=== PATIENT | female | born 1965 | race Caucasian/White ===

== ENCOUNTER 2018-01-26 09:05 | Outpatient (CLI) | payer MEDICAID ==
[2018-01-26 12:48] LABS: BASOPHILS % (AUTO) 0.3 %; EOSINOPHILS # (AUTO) 0.1 10^3/uL (0.0-0.7); EOSINOPHILS % (AUTO) 1.1 %; HGB - HEMOGLOBIN 12.6 g/dL (12.0-16.0); LYMPHOCYTES # (AUTO) 3.7 10^3/uL (1.5-3.5); LYMPHOCYTES % (AUTO) 58.6 %; MEAN CORPUSCULAR HEMOGLOBIN 28.9 pg (27.0-31.0); MEAN CORPUSCULAR HGB CONC 33.2 g/dL (32.0-36.0); MEAN CORPUSCULAR VOLUME 87.1 fL (81.0-99.0); MEAN PLATELET VOLUME 8.3 fL (7.9-10.8); MONOCYTES # (AUTO) 0.5 10^3/uL (0.0-1.0); MONOCYTES % (AUTO) 7.6 %; NEUTROPHILS % (AUTO) 32.4 %; PLT - PLATELET COUNT 302 10^3/uL (130-450); RED BLOOD COUNT 4.36 10^6/uL (4.20-5.40); RED CELL DISTRIBUTION WIDTH 12.9 % (12.0-15.0); WHITE BLOOD COUNT 6.3 x10^3/uL (4.8-10.8)
[2018-01-26 13:17] LABS: ALBUMIN 3.9 g/dL (3.2-5.5); ALBUMIN/GLOBULIN RATIO 1.3 (1.0-2.2); ALKALINE PHOSPHATASE 68 IU/L (42-121); ALT ALANINE AMINOTRANSFERASE 26 IU/L (10-60); AST ASPARTATE AMINOTRANSFERASE 29 IU/L (10-42); BILIRUBIN,TOTAL 0.3 mg/dL (0.2-1.0); BUN - BLOOD UREA NITROGEN 24 mg/dL (6-20); CALCIUM 9.1 mg/dL (8.5-10.3); CARBON DIOXIDE - CO2 24 mmol/L (21-32); CHLORIDE 109 mmol/L (101-111); CHOL/HDL RATIO 2.4 (<4.4); CHOLESTEROL 195 mg/dL; CREATININE 0.6 mg/dL (0.4-1.0); GFR - MDRD 105 (>89); GLUCOSE 102 mg/dL (70-100); HDL CHOLESTEROL 80 mg/dL; SODIUM 141 mmol/L (135-145)
[2018-01-26 13:21] LABS: THYROID STIMULATING HORMONE 1.74 uIU/mL (0.34-5.60)
[2018-01-26 13:32] LABS: FOLATE 15.25 ng/mL (5.90 - >24.8)
[2018-01-26 14:20] LABS: LDL CHOLESTEROL,DIRECT 103 mg/dL; LDLD/HDL RATIO 1.3 (<4.4)
== END 2018-01-26 09:06 | disposition home or self-care (01) ==
LOC: LAB.N 09:05
PROVIDERS: ATTEND Nurse Practitioner
DX: I10 Essential (primary) hypertension (principal); E55.9 Vitamin D deficiency, unspecified; R53.83 Other fatigue
CPT/HCPCS: 36415; 80053; 80061; 82306; 82607; 82746; 83721; 84443; 85025

== ENCOUNTER 2018-05-16 14:21 | Outpatient (CLI) | payer MEDICAID ==
--- NOTE | 2018-05-16 16:59 | XRAY Report ---
Reason: COUGH/NICOTINE ABUSE/DEPENDENCE Procedure Date: 05/16/2018 Accession Number: [id number] / [id number] Procedure: WCP - Chest 2 View X-Ray CPT Code: 33383 FULL RESULT: EXAM: CHEST RADIOGRAPHY EXAM DATE: 05/16/2018 02:34 PM. CLINICAL HISTORY: COUGH/NICOTINE ABUSE/DEPENDENCE. COMPARISON: None. TECHNIQUE: 2 views. FINDINGS: Lungs/Pleura: No focal opacities evident. No pleural effusion. No pneumothorax. Normal volumes. Mediastinum: Heart and mediastinal contours are unremarkable. Densely calcified mediastinal lymph nodes are present. Other: Negative bony structures. IMPRESSION: Clear lungs. No acute findings. Densely calcified mediastinal lymph nodes are present. RADIA
== END 2018-05-16 14:22 | disposition home or self-care (01) ==
LOC: DI.WCP 14:21
PROVIDERS: ATTEND Family Medicine
DX: R05 Cough (principal); F17.200 Nicotine dependence, unspecified, uncomplicated; I89.8 Other specified noninfective disorders of lymphatic vessels and lymph nodes; R91.8 Other nonspecific abnormal finding of lung field
CPT/HCPCS: 36415; 71046; 80053; 82164; 85025

== ENCOUNTER 2018-05-16 14:50 | Outpatient (CLI) | payer MEDICAID ==
[2018-05-16 19:10] LABS: BASOPHILS % (AUTO) 0.2 %; EOSINOPHILS % (AUTO) 0.7 %; LYMPHOCYTES # (AUTO) 2.4 10^3/uL (1.5-3.5); MEAN CORPUSCULAR HEMOGLOBIN 28.5 pg (27.0-31.0); MEAN CORPUSCULAR HGB CONC 32.2 g/dL (32.0-36.0); MEAN CORPUSCULAR VOLUME 88.3 fL (81.0-99.0); MEAN PLATELET VOLUME 7.5 fL (7.9-10.8); MONOCYTES # (AUTO) 0.5 10^3/uL (0.0-1.0); MONOCYTES % (AUTO) 8.9 %; NEUTROPHILS # (AUTO) 2.8 10^3/uL (1.5-6.6); NEUTROPHILS % (AUTO) 48.2 %; PLT - PLATELET COUNT 422 10^3/uL (130-450); RED BLOOD COUNT 4.23 10^6/uL (4.20-5.40); RED CELL DISTRIBUTION WIDTH 13.5 % (12.0-15.0); WHITE BLOOD COUNT 5.7 x10^3/uL (4.8-10.8)
[2018-05-16 19:21] LABS: ALBUMIN 3.7 g/dL (3.2-5.5); ALBUMIN/GLOBULIN RATIO 1.1 (1.0-2.2); BILIRUBIN,TOTAL 0.4 mg/dL (0.2-1.0); CALCIUM 9.2 mg/dL (8.5-10.3); CREATININE 0.6 mg/dL (0.4-1.0); TOTAL PROTEIN 7.1 g/dL (6.7-8.2)
== END 2018-05-16 14:51 | disposition home or self-care (01) ==
LOC: LAB.WCP 14:50
PROVIDERS: ATTEND Family Medicine
DX: R91.8 Other nonspecific abnormal finding of lung field (principal)
CPT/HCPCS: 36415; 80053; 82164; 85025

== ENCOUNTER 2018-05-23 08:20 | Outpatient (CLI) | payer MEDICAID ==
--- NOTE | 2018-05-31 09:40 | Mammography Report ---
Reason: SCREENING MAMMO Procedure Date: 05/23/2018 Accession Number: [id number] / [id number] Procedure: MGN - Screening Mammo Dig Bilat CPT Code: FULL RESULT: EXAM: Screening Mammo Dig Bilat DATE: 05/23/2018 8:43 AM CLINICAL HISTORY: Screening encounter. TECHNIQUE: Bilateral CC and MLO views were obtained. COMPARISON: Limited comparison is made to mammographic study dated June 21, 2016 from an outside institution. FINDINGS: The breasts demonstrate scattered fibroglandular densities bilaterally. The left MLO view is nondiagnostic for technical reasons and needs to be repeated. No suspicious masses, clustered microcalcifications, or regions of architectural distortion are identified. IMPRESSION: Incomplete examination RECOMMENDATION: Additional evaluation as above. Left MLO view. BIRADS CATEGORY 0: Incomplete examination STANDARD QUALIFYING STATEMENTS: 1. This examination was reviewed with the aid of Computer-Aided Detection (CAD). 2. A negative or benign imaging report should not delay biopsy if clinically suspicious findings are present. Consider surgical consultation if warrented. More than 5% of cancers are not identified by imaging. 3. Dense breasts may obscure an underlying neoplasm.
== END 2018-05-23 08:21 | disposition home or self-care (01) ==
LOC: DI.N 08:20
PROVIDERS: ATTEND Physician Assistant Medical
DX: Z12.31 Encounter for screening mammogram for malignant neoplasm of breast (principal)
CPT/HCPCS: 77067

== ENCOUNTER 2018-05-26 08:42 | Outpatient (CLI) | payer MEDICAID ==
[2018-05-26] MEDS ORDERED: IOVERSOL 320 100 ML VIAL IVP ONE ×3 (08:43→09:31)
--- NOTE | 2018-05-26 10:12 | CT Report ---
Reason: LUNG MASS,NICOTINE ABUSE/DEPENDENCE Procedure Date: 05/26/2018 Accession Number: [id number] / [id number] Procedure: CT - CHEST W CPT Code: FULL RESULT: EXAM: CT CHEST EXAM DATE: 05/26/2018 09:18 AM. CLINICAL HISTORY: Lung mass, nicotine abuse/dependence. COMPARISONS: Chest 2 views 05/16/2018 2:18 PM. TECHNIQUE: Routine helical CT imaging was performed through the chest. IV contrast: None. Reconstructions: Coronal and sagittal. In accordance with CT protocol optimization, one or more of the following dose reduction techniques were utilized for this exam: automated exposure control, adjustment of mA and/or KV based on patient size, or use of iterative reconstructive technique. FINDINGS: Lungs/Pleura: There is a 3 mm nodule in the anterior right middle lobe, image 32 of series 4. There is a 3 mm calcified granuloma in the right middle lobe, image 33. There is a 2 mm perifissural nodule in the right middle lobe, image 35. 3 mm nodule in the right lower lobe, image 3. 2 mm nodule in the left lower lobe on image 38. Mild emphysematous background is noted. No pleural effusion or pneumothorax. Mediastinum: Densely calcified pretracheal and subcarinal lymph nodes as well as a calcified right hilar lymph node, prior granulomatous disease. Mild aortic arch calcifications. Bones: Mild anterior wedge compression fracture deformity of T10, less than 25% height. Visualized Abdomen: Spleen shows evidence of prior granulomatous disease. Other: Prominent lymph nodes in the right axilla, measuring up to 0.9 cm in short axis, do not meet size criteria. IMPRESSION: A few generally benign-appearing scattered pulmonary nodules, some of which are calcified, measuring up to 3 mm as described. Evidence of granulomatous disease in the mediastinum, right hilum and spleen. No evidence of active airspace disease/lung mass. Age-indeterminate mild compression fracture of T10. Recommend follow-up of the described nodule(s) according to the following guidelines: Fleischner Society Recommendations 2017 Mac Cornelia et al. Radiology 2017 Solid Nodules-Low Risk Patients: <6 mm (single or multiple) - No routine follow-up* Solid Nodules-High Risk Patients: <6 mm (single or multiple) -Optional CT at 12 months* *Nodules < 6mm do not require routine follow-up, but suspicious nodule morphology, upper lobe location, or both may warrant 12 month follow-up RADIA
== END 2018-05-26 08:43 | disposition home or self-care (01) ==
LOC: DI 08:42
PROVIDERS: ATTEND Family Medicine
DX: R91.8 Other nonspecific abnormal finding of lung field (principal); F17.200 Nicotine dependence, unspecified, uncomplicated
CPT/HCPCS: 71260; Q9967

== ENCOUNTER 2018-06-05 10:45 | Outpatient (CLI) | payer MEDICAID | END 2018-06-05 10:46 | disposition home or self-care (01) | LOC: LAB.WCP 10:45 | PROVIDERS: ATTEND Family Medicine | DX: R19.4 Change in bowel habit (principal) | CPT/HCPCS: 81599; 83630; 87045; 87046; 87177; 87209; 87329 ==

== ENCOUNTER 2018-08-31 08:00 | Outpatient (CLI) | payer MEDICAID ==
[2018-08-31 21:16] LABS: CANDIDA GROUP DNA NEGATIVE (NEGATIVE); CANDIDA KRUSEI DNA NEGATIVE (NEGATIVE); TRICHOMONAS VAGINALIS DNA NEGATIVE (NEGATIVE)
== END 2018-08-31 23:59 | disposition home or self-care (01) ==
LOC: LAB.WCP 08:00
PROVIDERS: ATTEND Family Medicine
DX: N76.0 Acute vaginitis (principal)
CPT/HCPCS: 87661; 87801

== ENCOUNTER 2018-10-17 09:57 | Day surgery (SDC) | payer MEDICAID ==
[2018-10-17] MEDS ORDERED: LACTATED RINGERS 1,000 ML IV ONE (11:38)
[2018-10-17] MEDS ORDERED: fentaNYL 250 MCG/5 ML VIAL IVP ONE (12:39)
[2018-10-17] MEDS ORDERED: MIDAZOLAM 2 MG/2 ML VIAL IVP ONE (12:39)
[2018-10-17 14:13] VITALS: BP 104/75
== END 2018-10-17 09:58 | disposition home or self-care (01) ==
LOC: SDS 09:57
PROVIDERS: ATTEND Internal Medicine Gastroenterology
PROC: 0DBL8ZZ Excision of Transverse Colon, Via Natural or Artificial Opening Endoscopic (ICD-10-PCS; 2018-10-17)
PROC: 0DBK8ZZ Excision of Ascending Colon, Via Natural or Artificial Opening Endoscopic (ICD-10-PCS; 2018-10-17)
PROC: 0DBM8ZZ Excision of Descending Colon, Via Natural or Artificial Opening Endoscopic (ICD-10-PCS; principal; 2018-10-17 12:15)
DX: Z12.11 Encounter for screening for malignant neoplasm of colon (principal); D12.2 Benign neoplasm of ascending colon; D12.3 Benign neoplasm of transverse colon; D12.4 Benign neoplasm of descending colon; I10 Essential (primary) hypertension; J45.909 Unspecified asthma, uncomplicated; F17.210 Nicotine dependence, cigarettes, uncomplicated
CPT/HCPCS: 45380; 45385; J3010; J7120

== ENCOUNTER 2018-11-15 08:00 | Outpatient (CLI) | payer MEDICAID | END 2018-11-15 23:59 | disposition home or self-care (01) | LOC: LAB.WCP 08:00 | PROVIDERS: ATTEND Physician Assistant | DX: R35.0 Frequency of micturition (principal) | CPT/HCPCS: 87086 ==

== ENCOUNTER 2018-12-21 10:40 | Outpatient (CLI) | payer MEDICAID ==
--- NOTE | 2018-12-21 14:38 | Ultrasound Report ---
Reason: PELVIC PAIN Procedure Date: 12/21/2018 Accession Number: [id number] / [id number] Procedure: US - Pelvic w/Transvaginal CPT Code: FULL RESULT: EXAM: PELVIC ULTRASOUND EXAM DATE: 12/21/2018 11:37 AM. CLINICAL HISTORY: Pelvic pain. COMPARISON: None. TECHNIQUE: Realtime transabdominal pelvic scan performed to identify the uterus and adnexa and as an overview of other pelvic structures, followed by transvaginal scan to provide greater detail of the uterus and adnexa, with static image documentation. FINDINGS: Uterus: 10.4 x 5.9 x 7.5 cm, volume 240 cc. Retroflexed position. Normal overall size and echotexture. Masses: A large rim calcified left intramural lesion measures 4.5 x 4.0 x 4.4 cm. Endometrium: 4 mm. Normal. Cervix: Unremarkable. Right Ovary: 1.9 x 1.0 x 1.4 cm, volume 1.4 cc. Normal echotexture and blood flow. A cyst or dominant follicle measures up to 1.6 cm. Left Ovary: 3.2 x 1.7 x 2.4 cm, volume 6.8 cc. Normal echotexture and blood flow. Free Fluid: None. Other: None. IMPRESSION: 1. Large rim calcified left intramural uterine lesion measuring 4.5 cm, likely degenerated fibroid. 2. Cyst or dominant follicle right ovary 1.6 cm. RADIA
== END 2018-12-21 10:41 | disposition home or self-care (01) ==
LOC: DI 10:40
PROVIDERS: ATTEND Family Medicine
DX: N85.9 Noninflammatory disorder of uterus, unspecified (principal)
CPT/HCPCS: 76830; 76856

== ENCOUNTER 2019-01-09 09:00 | Outpatient (CLI) | payer MEDICAID ==
[2019-01-09 20:36] LABS: CANDIDA KRUSEI DNA NEGATIVE (NEGATIVE)
[2019-01-09 20:37] LABS: CANDIDA GROUP DNA NEGATIVE (NEGATIVE); TRICHOMONAS VAGINALIS DNA NEGATIVE (NEGATIVE)
== END 2019-01-09 23:59 | disposition home or self-care (01) ==
LOC: LAB.R 09:00
PROVIDERS: ATTEND Obstetrics & Gynecology
DX: N89.8 Other specified noninflammatory disorders of vagina (principal)
CPT/HCPCS: 87661; 87801

== ENCOUNTER 2019-07-02 07:50 | Outpatient (CLI) | payer OTHER, MEDICAID ==
[2019-07-02 17:40] LABS: ALBUMIN 3.9 g/dL (3.2-5.5); ALBUMIN/GLOBULIN RATIO 1.2 (1.0-2.2); ALKALINE PHOSPHATASE 51 IU/L (42-121); ALT ALANINE AMINOTRANSFERASE 18 IU/L (10-60); AST ASPARTATE AMINOTRANSFERASE 25 IU/L (10-42); BILIRUBIN,TOTAL 0.5 mg/dL (0.2-1.0); BUN - BLOOD UREA NITROGEN 14 mg/dL (6-20); CARBON DIOXIDE - CO2 23 mmol/L (21-32); CHLORIDE 107 mmol/L (101-111); CHOL/HDL RATIO 2.4 (<4.4); CHOLESTEROL 196 mg/dL; CREATININE 0.7 mg/dL (0.4-1.0); GLUCOSE 73 mg/dL (70-100); HDL CHOLESTEROL 81 mg/dL; LDL CHOLESTEROL,CALCULATED 104 mg/dL; LDL/HDL RATIO 1.3 (<4.4); SODIUM 139 mmol/L (135-145); TOTAL PROTEIN 7.1 g/dL (6.7-8.2); VLDL CHOLESTEROL 11 mg/dL
== END 2019-07-02 23:59 | disposition home or self-care (01) ==
LOC: LAB.WCP 07:50
PROVIDERS: ATTEND Family Medicine
DX: I10 Essential (primary) hypertension (principal); R19.5 Other fecal abnormalities
CPT/HCPCS: 36415; 80053; 80061; 83721; 87045; 87046; 87177; 87209

== ENCOUNTER 2019-07-09 11:10 | Emergency (ER) | payer MEDICAID, OTHER ==
--- NOTE | 2019-07-09 11:25 | ED Physician Documentation ---
PD HPI ABD PAIN - Stated complaint Stated Complaint: BACK PX - Chief complaint Chief Complaint: Abd Pain - History obtained from History obtained from: Patient - History of Present Illness Timing - onset: Yesterday Timing - duration: Days (1) Timing - details: Gradual onset (Onset of some upper abdominal pain with feeling of fullness and bloating in the upper abdomen. The pain increased and involve the mid to upper back as well overnight and into today. She was noticing some pain increased with deep breathing. Some pain with movement. She did not have any nausea or vomiting. She states she had not had a bowel movement in 2 days and typically is fairly regular. She denies any prior similar episodes. She also was noticing some mild edema in her ankles with impressions from her socks for the last few days.), Waxing and waning Quality: Aching, Fullness/distended, Pain Location: Epigastric Radiation: Upper back Improved by: Position (lying back and bending), Other (deep breathing). No: Eating, Laying still Worsened by: Breathing, Position. No: Eating Associated symptoms: Constipation (for 2 days). No: Fever, Nausea, Vomiting, Diarrhea Similar symptoms before: Has not had sx before Review of Systems Constitutional: denies: Fever, Chills, Myalgias Nose: denies: Rhinorrhea / runny nose, Congestion Throat: denies: Sore throat Cardiac: reports: Chest pain / pressure. denies: Palpitations Respiratory: denies: Dyspnea, Cough GI: reports: Abdominal Pain. denies: Nausea, Vomiting, Diarrhea Skin: denies: Rash, Lesions Musculoskeletal: reports: Extremity swelling (mild edema for past few days) Neurologic: denies: Generalized weakness, Near syncope PD PAST MEDICAL HISTORY - Past Medical History Cardiovascular: Hypertension Respiratory: None Endocrine/Autoimmune: None GI: None : None HEENT: None Psych: None Musculoskeletal: None Derm: None - Past Surgical History General: Colonoscopy, Other /[employer]: section - Present Medications Home Medications: Ambulatory Orders Medication Instructions Recorded Confirmed Aspirin 81 mg PO 10/17/18 Famotidine 20 mg PO DAILY #30 tablet 07/09/19 Furosemide [Lasix] 20 mg PO DAILY #5 tablet 07/09/19 Hydrocodone/Acetaminophen [G[place]iner 1 each PO Q6H PRN #15 tablet 07/09/19 5-325 Tablet] Lidocaine Viscous 2% [Xylocaine 5 ml PO Q4H PRN #100 ml 07/09/19 Viscous 2%] - Allergies Allergies/Adverse Reactions: Allergies Allergy/AdvReac Type Severity Reaction Status Date / Time No Known Drug Allergies Allergy Verified 10/17/18 11:39 PD ED PE NORMAL - Vitals Vital signs reviewed: Yes - General General: Alert and oriented X 3, Well developed/nourished - HEENT HEENT: Pharynx benign - Neck Neck: Supple, no meningeal sign, No adenopathy - Cardiac Cardiac: RRR, No murmur - Respiratory Respiratory: Clear bilaterally - Abdomen Abdomen: Soft, Other - Derm Derm: Normal color, Warm and dry - Extremities Extremities: No deformity, No tenderness to palpate, No calf tenderness / cord, Other (1+ mild edema in both ankles. ) - Neuro Neuro: Alert and oriented X 3, No motor deficit, Normal speech Results - Vitals Vitals: Vital Signs - 24 hr 07/09/19 07/09/19 07/09/19 11:15 11:46 13:46 Temperature 36.8 C Heart Rate 70 63 73 Respiratory 16 18 21 Rate Blood Pressure 145/71 H 155/79 H 151/79 H O2 Saturation 100 99 97 07/09/19 14:11 Temperature Heart Rate 55 L Respiratory 17 Rate Blood Pressure 128/68 O2 Saturation 95 Oxygen O2 Source Room air - EKG (time done) 11:33 Rate: Rate (enter#) (54) Rhythm: NSR [place]: Normal Intervals: Normal [place] QRS: Normal Ischemia: Normal ST segments. No: ST elevation c/w ischemia, ST depression - Labs Labs: Laboratory Tests 07/09/19 07/09/19 07/09/19 11:29 11:29 11:29 WBC 6.4 RBC 4.32 Hgb 12.3 Hct 38.4 MCV 88.9 MCH 28.5 MCHC 32.0 RDW 13.2 Plt Count 312 MPV 9.1 Neut # (Auto) 2.6 Lymph # (Auto) 3.0 [place] # (Auto) 0.6 Eos # (Auto) 0.1 Baso # (Auto) 0.0 Absolute Nucleated RBC 0.00 Nucleated RBC % 0.0 Sodium 133 L Potassium 3.9 Chloride 101 Carbon Dioxide 26 Anion Gap 6.0 BUN 11 Creatinine 0.7 Estimated GFR (MDRD) 106 Glucose 98 Calcium 9.1 Total Bilirubin 0.5 AST 22 ALT 18 Alkaline Phosphatase 53 Troponin I High Sens 2.8 B-Natriuretic Peptide Total Protein 7.8 Albumin 3.9 Globulin 3.9 Albumin/Globulin Ratio 1.0 Lipase 25 07/09/19 11:29 WBC RBC Hgb Hct MCV MCH MCHC RDW Plt Count MPV Neut # (Auto) Lymph # (Auto) [place] # (Auto) Eos # (Auto) Baso # (Auto) Absolute Nucleated RBC Nucleated RBC % Sodium Potassium Chloride Carbon Dioxide Anion Gap BUN Creatinine Estimated GFR (MDRD) Glucose Calcium Total Bilirubin AST ALT Alkaline Phosphatase Troponin I High Sens B-Natriuretic Peptide 8 Total Protein Albumin Globulin Albumin/Globulin Ratio Lipase - Rads (name of study) chest xray Radiology: Prelim report reviewed (no acute process), See rad report chest aortic CT_A Radiology: Prelim report reviewed (Normal vasculature on CT PETERSON. No signs of dissections clots or bleeding. No other organ abnormalities identified.), See rad report PD MEDICAL DECISION MAKING - ED course Complexity details: re-evaluated patient (Her labs are looking good and she was feeling better with some IV fluids and nausea and pain medicine. However she did have a distinct time associated improvement with GI cocktail suggestive of some esophagitis or ulcer gastritis. His CT did not show any signs of perforation free air or localized fluid.), considered differential (Concern would be for epigastric organs with some epigastric tenderness. However she does not as tender as I would expect for him gallbladder or pancreas problems. Will check labs for that. Your EKG and rhythm are looking normal. Given the pain in the epigastric to sternal area radiating into the back, would also be concern for vascular process such as dissection or aneurysm. Will check a regular chest x-ray but if normal, I would consider a CT PETERSON to ensure no organ or vascular process.), d/w patient Departure - Departure Disposition: 01 Home, Self Care Clinical Impression: Upper abdominal pain Acute thoracic back pain Qualifiers: Back pain laterality: unspecified Qualified Code(s): M54.6 - Pain in thoracic spine Gastroesophageal reflux disease Qualifiers: Esophagitis presence: with esophagitis Qualified Code(s): K21.0 - Gastro- esophageal reflux disease with esophagitis Condition: Stable Record reviewed to determine appropriate education?: Yes Instructions: ED GERD Follow-Up: Diana Salter, DO [Primary Care Provider] - Prescriptions: Famotidine 20 mg PO DAILY #30 tablet Furosemide [Lasix] 20 mg PO DAILY #5 tablet Hydrocodone/Acetaminophen [Gardiner 5-325 Tablet] 1 each PO Q6H PRN #15 tablet PRN Reason: Pain Lidocaine Viscous 2% [Xylocaine Viscous 2%] 5 ml PO Q4H PRN #100 ml PRN Reason: Pain Comments: Your EKG and chest x-ray blood tests and CT scan did not show any obvious acute process. Given some improvement with the antacid and numbing medicine, I am assuming you have some irritation of the esophagus and stomach. Take famotidine acid reducing medicine daily for the next several weeks. In the short-term use some Tylenol or lidocaine with antacid as needed for pains. Do not use any anti-inflammatories as that can irritate the stomach. Use a stool softener such as docusate daily for the next several days to a week. You can use a mild diuretic to help with some of your edema. No signs of heart injury or heart failure or kidney failure on your tests. Seems like some benign fluid retention.
[2019-07-09 11:50] LABS: BASOPHILS % (AUTO) 0.5 %; EOSINOPHILS # (AUTO) 0.1 10^3/uL (0.0-0.7); EOSINOPHILS % (AUTO) 1.6 %; HGB - HEMOGLOBIN 12.3 g/dL (12.0-16.0); MEAN CORPUSCULAR HEMOGLOBIN 28.5 pg (27.0-31.0); MEAN CORPUSCULAR VOLUME 88.9 fL (81.0-99.0); MEAN PLATELET VOLUME 9.1 fL (7.9-10.8); MONOCYTES # (AUTO) 0.6 10^3/uL (0.0-1.0); NEUTROPHILS # (AUTO) 2.6 10^3/uL (1.5-6.6); NEUTROPHILS % (AUTO) 40.6 %; PLT - PLATELET COUNT 312 10^3/uL (130-450); RED BLOOD COUNT 4.32 10^6/uL (4.20-5.40); RED CELL DISTRIBUTION WIDTH 13.2 % (12.0-15.0); WHITE BLOOD COUNT 6.4 x10^3/uL (4.8-10.8)
--- NOTE | 2019-07-09 11:59 | XRAY Report ---
Reason: Chest Pain Procedure Date: 07/09/2019 Accession Number: [id number] / [id number] Procedure: XR - Chest 1 View X-Ray CPT Code: 23896 Final Report FULL RESULT: EXAM: CHEST RADIOGRAPHY EXAM DATE: 07/09/2019 11:51 AM. CLINICAL HISTORY: Chest pain. COMPARISON: CHEST W/ 05/26/2018 9:03 AM. TECHNIQUE: 1 view. FINDINGS: Lungs/Pleura: No focal opacities evident. No pleural effusion. No pneumothorax. Mediastinum: No cardiac enlargement identified. There is a suggestion of potential calcific densities overlying the right hilum and mediastinum as noted on prior chest CT report. Other: None. IMPRESSION: 1. No acute disease evident. 2. Right hilar and adjacent mediastinal calcified nodules as on prior CT suggesting old granulomatous disease. RADIA
[2019-07-09 12:05] LABS: ALBUMIN 3.9 g/dL (3.2-5.5); BILIRUBIN,TOTAL 0.5 mg/dL (0.2-1.0); CALCIUM 9.1 mg/dL (8.5-10.3); CREATININE 0.7 mg/dL (0.4-1.0); TOTAL PROTEIN 7.8 g/dL (6.7-8.2)
[2019-07-09] MEDS ORDERED: MAG HYDROX/AL HYDROX/SIMETH 30 ML UDC PO STA (12:09)
[2019-07-09] MEDS ORDERED: SODIUM CHLORIDE 0.9% 1,000 ML IV ONE (12:09)
[2019-07-09] MEDS ORDERED: LIDOCAINE VISCOUS 2% 15 ML UDC MM STA (12:09)
[2019-07-09] MEDS ORDERED: HYDROmorphone 1 MG/ML CARPUJECT IVP STA (12:09)
[2019-07-09] MEDS ORDERED: IOVERSOL 320 100 ML VIAL IVP ONE ×2 (12:16→13:12)
--- NOTE | 2019-07-09 13:12 | CT Report ---
Reason: evaluate aorta with chest/back/upper abd pain Procedure Date: 07/09/2019 Accession Number: [id number] / [id number] Procedure: CT - ANGIO CHEST W/WO CPT Code: Final Report FULL RESULT: EXAM: CT ANGIOGRAM CHEST EXAM DATE: 07/09/2019 12:41 PM. CLINICAL HISTORY: Evaluate aorta with chest/back/upper abd pain. COMPARISON: CHEST W/ 05/26/2018 9:03 AM. TECHNIQUE: Routine helical imaging was performed through the chest in the noncontrast and arterial phase. IV contrast: OPTIRAY 320. Reconstructions: Coronal, sagittal, and 3D MIP reconstructions of the aorta. FINDINGS: Vascular Structures: No intramural hematoma, aneurysm or dissection. No pulmonary embolism. Lungs/Pleura: No effusions. Airways wall thickening. Subsegmental airway occlusions in the basilar right lower lobe base. Mild centrilobular emphysema. Respiratory motion artifact. Calcified pulmonary nodule in the right middle lobe, consistent with prior granulomatous infection. Bibasilar subsegmental atelectasis. Mediastinum: Heart is normal in size. No pericardial effusion. Calcified mediastinal and right hilar lymph nodes, consistent with prior granulomatous infection. Upper Abdomen: Calcifications in the spleen, consistent with prior granulomatous infection. Osseous structures: Spondylosis/degenerative disk disease at T12/L1 with Schmorl's node in the inferior endplate of T12. Large Schmorl's node and mild superior endplate compression deformity at T10. Other: None. IMPRESSION: 1. No intramural hematoma, aneurysm or dissection. 2. Moderate to severe airways disease. Possible reactive airways disease or bronchitis/bronchiolitis. 3. Mild emphysema. 4. Findings of prior granulomatous infection RADIA
[2019-07-09] MEDS ORDERED: DOCUSATE SODIUM 100 MG CAPSULE PO STA (14:10)
[2019-07-09] MEDS ORDERED: FAMOTIDINE 20 MG/2 ML VIAL IVP STA (14:10)
[2019-07-09 14:12] VITALS: BP 128/68
== END 2019-07-09 14:31 | disposition home or self-care (01) ==
LOC: ED 11:10
DX: R10.10 Upper abdominal pain, unspecified (principal); M54.6 Pain in thoracic spine; K21.0 Gastro-esophageal reflux disease with esophagitis; I10 Essential (primary) hypertension
CPT/HCPCS: 36415; 71045; 71275; 80053; 83690; 83880; 84484; 85025; 93005; 96374; 96375; 99284; A9270; J1170; Q9967